=== PATIENT | female | born 1965 | race Caucasian/White ===

== ENCOUNTER 2018-08-26 18:48 | Emergency (ER) | payer BC ==
[~2018-08-26] VITALS: Ht 160 cm; Wt 74.8 kg
[2018-08-26 18:57] VITALS: BP 146/85
[2018-08-26 21:41] LABS: Basophils # (auto) 0.1 uL; Basophils % (auto) 0.8 % (0.0-2.0); Eosinophils # (auto) 0.2 uL; Eosinophils % (auto) 1.9 % (0.0-7.0); Hematocrit 43.7 % (36.0-46.0); Hemoglobin 14.7 g/dL (12.2-16.2); Lymphocytes # (auto) 3.5 uL; Lymphocytes % (auto) 29.9 % (10.0-50.0); Mean Corpuscular Hemoglobin 29.2 pg (28.0-32.0); Mean Corpuscular Hgb Conc. 33.6 g/dL (32.0-36.0); Mean Corpuscular Volume 86.8 fL (80.0-100.0); Monocytes # (auto) 0.7 uL; Neutrophils # (auto) 7.2 uL; Neutrophils % (auto) 61.4 % (37.0-80.0); Nucleated Red Blood Cells % 0.1 %; Platelet Count (auto) 289 10^3/uL (140-450); Red Blood Cells 5.04 10^6/uL (4.0-5.20); Red Cell Distribution Width 13.7 % (11.8-14.3); White Blood Cell 11.7 10^3/uL (4.4-10.8)
[2018-08-26 22:00] LABS: Alanine Aminotransferase 22 U/L (13-56); Albumin 4.2 g/dL (3.4-5.0); Alkaline Phosphatase 90 U/L (45-117); Anion Gap 3 (5-15); Aspartate Aminotransferase 19 U/L (15-37); BUN/Creatinine Ratio 21.3; Bilirubin, Total 0.3 mg/dL (0.2-1.0); Blood Urea Nitrogen 20 mg/dL (7-18); Calcium 9.2 mg/dL (8.5-10.1); Carbon Dioxide 30 mmol/L (21-32); Chloride 105 mmol/L (98-107); GFR African American 80 mL/min; GFR Non-African American 66 mL/min; Glucose 94 mg/dL (74-106); Magnesium 2.4 mg/dL (1.6-2.6); Potassium 3.8 mmol/L (3.5-5.1); Sodium 138 mmol/L (136-145); Total Protein 8.3 g/dL (6.4-8.2)
== END 2018-08-27 02:08 | disposition left against medical advice (07) ==
LOC: ER 18:48
DX: R07.89 Other chest pain (principal); R42 Dizziness and giddiness; Z53.21 Procedure and treatment not carried out due to patient leaving prior to being seen by health care provider
CPT/HCPCS: 36415; 71045; 80053; 83735; 83880; 84484; 85025; 93005